=== PATIENT | female | born 1955 | race Caucasian/White ===

== ENCOUNTER 2019-10-25 10:16 | Emergency (ER) | payer BC, SELFPAY ==
--- NOTE | ~2019-10-25 | US_ITS ---
EXAMINATION: US venous doppler [facility] DATE: 10/25/2019 11:16 INDICATION: Left lower limb pain. TECHNIQUE: Grayscale ultrasound images without and with compression and Doppler ultrasound images of the left lower extremity veins were obtained. COMPARISON: None. FINDINGS: The visualized portions of left common femoral vein, profunda (deep) femoral vein, femoral vein, popl iteal vein, peroneal veins, posterior tibial veins, and greater saphenous vein outflow are patent. IMPRESSION: 1. No deep venous thrombosis. Reviewed, dictated and finalized at location A.
--- NOTE | ~2019-10-25 | XR_ITS ---
EXAMINATION: XR knee LT 3V EXAM DATE: 10/25/2019 10:58 INDICATION: No known recent injury provided at this time. Pain of the left knee. TECHNIQUE: Three projections of the left knee. There is no prior study for comparison. FINDINGS: No evidence osteochondral defect or joint body in the left knee joint. There is mild poly articular primary osteoarthritis. No joint effusion. There are no acute fractures or dislocations id entified. There is no subcutaneous gas. The soft tissue is unremarkable. There are no radiopaque foreign bodies. IMPRESSION: Mild polyarticular osteoarthritis. Reviewed, dictated and finalized at location B.
[2019-10-25 10:33] VITALS: BP 129/63; PULSE 60; RESP 19; TEMP 36.3; O2SAT 99
--- NOTE | 2019-10-25 10:34 | ED.EXTPRO ---
HPI - Extremity Problem General Chief complaint: Extremity Problem,Nontraumatic Stated complaint: Left Knee pain Time Seen by Provider: 10/25/19 10:30 Source: patient and RN notes reviewed Mode of arrival: other Limitations: no limitations History of Present Illness HPI Narrative: Pt is a 64 y/o female who presents to the ED with c/o posterior left knee pain that began Wednesday (10/21/19). Pt notes that today she stood up and had severe 9/10 pain. Pt notes that her pain is worsened when standing and bearing weight. Pt has been taking Motrin for her pain, but with minimial relief. Pt denies chest pain, fever, chills, SOB, nausea, and vomiting. MD Complaint: joint paint Onset (ago): day(s) (4) Pain Consistency: constant Location: left and knee (posterior) Severity scale (1-10): 9 (when standing) Radiation: none Exacerbating factors: weight bearing Associated symptoms: denies other symptoms Related Data Home Medications Medication Instructions Recorded Confirmed gabapentin 10/25/19 metoprolol tartrate 10/25/19 Allergies Allergy/AdvReac Type Severity Reaction Status Date / Time No Known Allergies Allergy Unknown Verified 10/25/19 10:37 Review of Systems Review of Systems: All systems reviewed & are unremarkable except as noted in HPI and below Constitutional: Constitutional: Denies chills and Denies fever(s) Cardiovascular: Cardiovascular: Denies chest pain Respiratory: Respiratory: Denies dyspnea Gastrointestinal: Gastrointestinal: Denies nausea and Denies vomiting Musculoskeletal: Musculoskeletal: Reports arthralgias (posterior left knee) [facility] Past Medical History Medical History (Updated 10/26/19 @ 06:41 by Lisa Mart MD) Arthritis Carpal tunnel syndrome Cataracts, bilateral Cystocele GERD (gastroesophageal reflux disease) Graves disease HTN (hypertension) Rosacea Seasonal allergies SERGO (stress urinary incontinence, female) Uterine prolapse Surgical History Surgical History (Updated 10/25/19 @ 10:37 by Magali Soto) H/O total hysterectomy History of carpal tunnel release left Hx of section x2 Family History Family History (Updated 10/25/19 @ 10:37 by Magali Soto) Mother Cerebrovascular accident Hypertension Other Family history of arthritis Social History Social History Smoking status: Never smoker Alcohol intake: never Gender identity (if verbalized by the patient): Female Exam Const: General: no acute distress and well developed Orientation/consciousness: oriented to person, oriented to place, oriented to time and patient oriented x3 HENMT: Head: normocephalic Ears: external ears normal General nose exam: Normal external nose present Eyes: General: appearance normal, both eyes and all related structures Conjunctivae: conjunctivae normal Neck: Neck: normal visual inspection and full ROM Resp: Effort & Inspection: normal respiratory effort Skin: General skin exam: normal color and turgor normal Neuro: General: oriented to person, oriented to place, oriented to time and patient oriented x3 Cognition (Neuro): normal cognition Extrem: General: normal to inspection, full ROM and no pedal edema Left lower extremity: knee Details: no tenderness and no swelling Psych: Appearance: grossly normal Mental Status: mental status grossly normal Affect: normal affect Course Vital Signs Vital signs: Vital Signs Temperature 36.3 C L 10/25/19 10:33 Pulse Rate 60 10/25/19 10:33 Respiratory Rate 19 10/25/19 10:33 Blood Pressure 129/63 10/25/19 10:33 Pulse Oximetry 99 10/25/19 10:33 Temperature 36.3 C L 10/25/19 10:33 Pulse Rate 60 10/25/19 10:33 Respiratory Rate 19 10/25/19 10:33 Blood Pressure 129/63 10/25/19 10:33 Pulse Oximetry 99 10/25/19 10:33 MDM - Extremity (Nontraumatic) Lab Data Result diagrams: 10/25/19 11:21 10/25/19 11:21 Labs: Lab Results
[2019-10-25] MEDS: GABAPENTIN 100 MG CAPSULE PO (11:17)
[2019-10-25 11:31] LABS: Basophils Absolute Auto 0.1 K/mm3 (0.0-0.1); Basophils Percent Auto 1.8 % (0.2-1.2); Eosinophils Absolute Auto 0.5 K/mm3 (0-0.3); Eosinophils Percent Auto 14.5 % (0-4.4); Hematocrit 36.6 % (37.0-47.0); Hemoglobin 11.7 g/dL (12.0-15.0); Lymphocytes Absolute Auto 0.92 K/mm3 (0.9-3.2); Lymphocytes Percent Auto 27.3 % (18.3-44.2); Mean Corpuscular Hemoglobin 31.2 pg (26-34); Mean Corpuscular Volume 97.6 fl (80-100); Mean Platelet Volume 9.7 fl (7.4-10.4); Monocytes Absolute Auto 0.4 K/mm3 (0.1-0.6); Monocytes Percent Auto 13.1 % (2.6-8.5); Neutrophils Absolute Auto 1.5 K/mm3 (1.3-6.7); Neutrophils Percent Auto 43.3 % (45.5-73.1); Platelet Count Result 244 k/mm3 (150-375); Red Blood Count 3.75 M/mm3 (4.2-5.4); Red Cell Distribution Width 12.7 % (11.5-14.5); White Blood Count 3.4 K/mm3 (4.5-10.0)
[2019-10-25 11:42] LABS: Blood Urea Nitrogen 22 mg/dL (7-17); Calcium 8.9 mg/dL (8.4-10.2); Carbon Dioxide 27 mmol/L (22-30); Chloride 107 mmol/L (98-107); Estimated Glomerular Filt Rate > 60; Glucose 80 mg/dL (65-105); Potassium 4.2 mmol/L (3.4-5.0); Sodium 140 mmol/L (137-145)
== END 2019-10-25 13:07 | disposition home or self-care (01) ==
PROVIDERS: Emergency Provider Emergency Medicine; PCP Family Medicine
DX: M25.562 Pain in left knee (principal); M19.90 Unspecified osteoarthritis, unspecified site; K21.9 Gastro-esophageal reflux disease without esophagitis; E05.00 Thyrotoxicosis with diffuse goiter without thyrotoxic crisis or storm; I10 Essential (primary) hypertension
CPT/HCPCS: 36415; 73562; 80048; 85025; 93971; 99284; A9270

== ENCOUNTER 2021-12-14 14:22 | Emergency (ER) | payer BC, SELFPAY ==
[2021-12-14] VITALS (10 sets, daily range): BP systolic 98–126; BP diastolic 54–73; PULSE 86–160; RESP 10–25; TEMP 36.4; O2SAT 95–100
--- NOTE | ~2021-12-14 | XR_ITS ---
EXAM: XR abdomen NG/feed tube insert HISTORY: NG insert COMPARISON: CT abdomen and pelvis 12/14/2021. FINDINGS: A new nasogastric tube terminates over the expected position of the stomach with the tip a nd side port is properly positioned. Positive bowel gas. A portion of the air and fluid filled stomac h extends above the level of the diaphragm. Severe degenerative changes in the lumbar spine. IMPRESSION: NG tube, in good position. Reviewed, dictated and finalized at location K. IMPRESSION: NG tube, in good position.
--- NOTE | ~2021-12-14 | CT_ITS ---
EXAMINATION: CT abdomen pelvis wo con DATE: 12/14/2021 15:38 INDICATION: Lower abdominal pain TECHNIQUE: Computed tomography (CT) of the abdomen and pelvis was performed without intravenous contr ast. Automated exposure control and iterative reconstruction technique were employed. The dose-length product was 287.54 mGy-cm. COMPARISON: None FINDINGS: Lower thorax: Portions of the stomach herniated through the esophageal hiatus. Liver: Normal. Biliary/Gallbladder: Gallbladder is distended. No stones. No bile duct dilation. Spleen: Normal. Pancreas: No mass or duct dilation. Adrenals:No mass. Kidneys: 2 mm nonobstructive left midpole calculus. No mass. No hydronephrosis. GI tract: Marked gastric distention. Abnormal position of the stomach, with the antrum herniated thro ugh the esophageal hiatus (mesentero- axial positioning). Appendix not visualized. Mesentery/Peritoneum: No ascites, mass, or free air. Retroperitoneum: No mass. Pelvis: Uterus not visualized. Pelvic organs obscured by metal artifact. Bones/Soft Tissues: Soft tissues and body wall unremarkable. Extensive degenerative changes in the sp ine. Left hip arthroplasty. Additional Findings: None. IMPRESSION: Gastric volvulus. Gallbladder hydrops. Results communicated to Dr. Calloway by Dr. Harrison telephonically at 4:04 PM on 12/14/2021. Reviewed, dictated and finalized at location K. IMPRESSION: Gastric volvulus. Gallbladder hydrops. Results communicated to Dr. Calloway by Dr. Harrison telephonically at 4:04 PM on 12/14.
--- NOTE | 2021-12-14 14:51 | ECG_ITS ---
Measurements Intervals [place] Rate: 146 P: [place]: 0 QRS: 14 QRSD: 102 T: 213 QT: 301 QTc: 470 Interpretive Statements ATRIAL FIBRILLATION WITH RAPID VENTRICULAR RESPONSE LEFT VENTRICULAR HYPERTROPHY WITH ST-T CHANGE ST-T WAVE ABNORMALITY IN INF/LAT LEADS- CONSIDER ISCHEMIA BASELINE ARTIFACT- I, II, III, AVR, AVL, AVF, V3-V6 ABNORMAL ECG Electronically Signed On 12-14-2021 16:40:06 CDT by Fabian Montejo D.O.
[2021-12-14 15:01] LABS: Basophils Percent Auto 0.1 % (0.2-1.2); Hematocrit 40.8 % (37.0-47.0); Hemoglobin 13.5 g/dL (12.0-15.0); Immature Granulocyte Absolute 0.02 K/mm3 (0.00-0.031); Immature Granulocyte Percent A 0.2 % (0-0.5); Lymphocytes Percent Auto 5.7 % (18.3-44.2); Mean Corpuscular HGB Conc 33.1 g/dl (32-36); Mean Corpuscular Hemoglobin 31.3 pg (26-34); Mean Corpuscular Volume 94.4 fl (80-100); Mean Platelet Volume 10.4 fl (7.4-10.4); Monocytes Absolute Auto 0.8 K/mm3 (0.1-0.6); Monocytes Percent Auto 7.3 % (2.6-8.5); Neutrophils Absolute Auto 9.1 K/mm3 (1.3-6.7); Neutrophils Percent Auto 86.7 % (45.5-73.1); Platelet Count Result 302 k/mm3 (150-375); Red Blood Count 4.32 M/mm3 (4.2-5.4); Red Cell Distribution Width 12.9 % (11.5-14.5); White Blood Count 10.5 K/mm3 (4.5-10.0)
--- NOTE | 2021-12-14 15:09 | ED.ABDPAIN ---
HPI - Abdominal Pain General Chief Complaint: Abdominal Pain Stated Complaint: abd pain x 3-4 days Time Seen by Provider: 12/14/21 15:02 Source: patient, family and EMS Mode of arrival: EMS Limitations: no limitations History of Present Illness HPI narrative: 66 years old white female presents with diffuse abdominal pain, nausea, vomiting over the last 3 days, unable to keep anything down, did not take her medication over the last few days. She denies fever, chills, chest pain, shortness of breath. History of Graves' disease, hypertension, hysterectomy. Patient lives with family. Related Data Home Medications Medication Instructions Recorded Confirmed gabapentin 300 mg capsule 600 mg PO QHS cap 11/19/21 11/19/21 Allergies Allergy/AdvReac Type Severity Reaction Status Date / Time No Known Allergies Allergy Unknown Verified 11/19/21 15:01 Review of Systems Review of Systems: All systems reviewed & are unremarkable except as noted in HPI and below PMFSH Past Medical History Medical History Arthritis Arthritis of knee Carpal tunnel syndrome Cataracts, bilateral Cystocele GERD (gastroesophageal reflux disease) Graves disease HTN (hypertension) Rosacea Seasonal allergies SERGO (stress urinary incontinence, female) Uterine prolapse Surgical History Surgical History H/O joint replacement H/O total hysterectomy History of carpal tunnel release left Hx of section x2 Family History Family History Mother Cerebrovascular accident Hypertension Other Family history of arthritis Social History Social History Social History: Smoking status: Never smoker Second hand tobacco smoke exposure: No Alcohol intake: never Substance use: never Substance use type: does not use Gender identity (if verbalized by the patient): Female Sexual Orientation (if Verbalized by the Patient): Straight or Heterosexual Exam Narrative: General appearance: Well-developed, well-nourished, ill looking Skin: Normal color Head: Normocephalic, nontraumatic Eyes: Clear conjunctiva ENT: Dry oral cavity Neck: Supple, nontender Chest and respiratory: Airway patent, no respiratory distress, no accessory muscle use Heart: Regular rate/rhythm Abdomen: Diffuse abdominal tenderness, slight epigastric distention Vascular: Normal peripheral pulses, normal capillary refill. Musculoskeletal: Normal range of motion, nontender back Neurologic: Alert and oriented ?3, MILLING MACHINE OPERATOR is normal as tested, no gross motor deficit Course Course Emergency Course: Patient presents with abdominal pain, CT scan showed gastric volvulus, GI consult, surgery consult ordered Consultations Consultation #1: Dr. Razo Date: 12/14/21 Time: 16:52 Consultation #2: Dr. Bull Transfer to [facility] Date: 12/14/21 Time: 16:53 Consultation #3: DR MCKINNEY, thoracic surgeon at [facility] NG tube have to be twisted 180 degree to decompress the stomach. And this can be done through EGD/briquette operator. No bed available for the next 3 to 4 days. Date: 12/14/21 Time: 17:37 Additional Consultation(s): DR JORDAN, thoracic surgeon at [facility], accepted patient to be transferred, but no bed available at this time Vital Signs Vital signs: Vital Signs Temperature 36.4 C 12/14/21 14:42 Pulse Rate 160 H 12/14/21 14:42 Respiratory Rate 22 H 12/14/21 14:42 Blood Pressure 119/59 L 12/14/21 14:42 Pulse Oximetry 97 05
[2021-12-14 15:12] LABS: INR 1.1; Prothrombin Time 13.8 Seconds (11.1-14.7)
[2021-12-14 15:13] LABS: Partial Thromboplastin Time 23.6 SECONDS (22.3-36.8)
[2021-12-14] MEDS: HYDROmorphone HCL INJ (*CRX) 1 MG/ML SYR 0.5 MG IV PUSH (15:14)
[2021-12-14] MEDS: ONDANSETRON INJ 4 MG/2 ML VIAL IV PUSH (15:15)
[2021-12-14 15:21] LABS: Alanine Aminotransferase 40 U/L (4-35); Albumin Level 4.7 g/dL (3.5-5.1); Alkaline Phosphatase 81 U/L (38-126); Anion Gap 18 mmol/L (8-16); Aspartate Amino Transferase 54 U/L (14-36); Bilirubin,Total 0.4 mg/dL (0.2-1.3); Blood Urea Nitrogen 79 mg/dL (7-17); Calcium 8.9 mg/dL (8.4-10.2); Carbon Dioxide 24 mmol/L (22-30); Chloride 103 mmol/L (98-107); Estimated CRCL calculation 12 ml/min; Estimated Glomerular Filt Rate 14; Glucose 171 mg/dL (65-110); Lipase 1077 U/L (23-300); Sodium 145 mmol/L (137-145)
[2021-12-14 15:33] LABS: Add Urine Microscopic? YES; Appearance Urine Cloudy (Clear); Bilirubin Urine Negative (Negative); Blood Urine 1+ (Negative); Color Urine Amber (Yellow); Glucose Urine UA 1+ mg/dL (Negative); Ketones Urine Negative (Negative); Leukocyte Esterase Ur Negative LEU/UL (Negative); Mucus Urine Rare /lpf; Nitrate Urine Negative (Negative); Protein Urine 2+ mg/dL (Negative); Specific Grav Ur 1.019 (1.001-1.035); Squamous Epithelial Cell Urine Occasional /hpf (Few); Urobilinogen Urine Negative mg/dL (<2.0); White Blood Cell Casts Urine Present /lpf
[2021-12-14 15:34] LABS: Troponin I 0.124 ng/mL (0.000-0.034)
[2021-12-14 16:09] LABS: Thyroid Stimulating Hormone 0.471 uIU/mL (0.465-4.680)
[2021-12-14] MEDS: SODIUM CHLORIDE 0.9% IV 1,000 ML 999 ML IV CONT (16:23)
[2021-12-14 18:59] LABS: Troponin I 0.095 ng/mL (0.000-0.034)
[2021-12-14 19:06] LABS: SARS-CoV-2 RNA PCR Negative
--- NOTE | 2021-12-14 19:15 | PC.NURSE ---
called [facility] transfer center and updated them that COVID test is negative.
--- NOTE | 2021-12-14 19:23 | PC.NURSE ---
Report received from MADISYN Severino. This nurse assumed care of patient at this time. Patient has family at bedside, no acute distress noted, VVS, call light within reach.
[2021-12-14] MEDS: METOPROLOL TARTRATE INJ 5 MG/5 ML VIAL IV PUSH ×2 (20:09→21:29)
[2021-12-14] MEDS: SODIUM CHLORIDE 0.9% IV 1,000 ML 150 ML IV CONT (20:09)
--- NOTE | 2021-12-14 20:21 | PC.NURSE ---
Patients elana Hatfield leaves his number for contact and info as well as updates, .
[2021-12-15] VITALS (10 sets, daily range): BP systolic 108–132; BP diastolic 60–73; PULSE 86–95; RESP 16–26; TEMP 36.7–37.2; O2SAT 94–100
--- NOTE | 2021-12-15 01:38 | PC.NURSE ---
Patient c/o headache and nasal drainage. ERP notified, VORB to give 1gm of tylenol and 25mg of benadryl IV.
[2021-12-15] MEDS: diphenhydrAMINE HCl INJ 50 MG/ML VIAL 25 MG IV PUSH (01:42)
--- NOTE | 2021-12-15 03:16 | PC.NURSE ---
Contacted [facility] transfer center to get update on patient bed status. Spoke with Isabella, she stated she is still waiting for a cardiothoracic bed. She stated she will contact the placement team and call back if an update comes available.
--- NOTE | 2021-12-15 03:35 | PC.NURSE ---
Patient received bed, Room number 7466-1.
--- NOTE | 2021-12-15 03:49 | PC.NURSE ---
[id number] Called report to MADISYN Ricardo at [place]. She stated to call [phone] when patient is leaving our facility to theirs.
== END 2021-12-15 07:48 | disposition short-term general hospital (02) ==
PROVIDERS: Physician Assistant; Emergency Provider Emergency Medicine; PCP Family Medicine
DX: K31.89 Other diseases of stomach and duodenum (principal); N17.9 Acute kidney failure, unspecified; R79.89 Other specified abnormal findings of blood chemistry; R74.8 Abnormal levels of other serum enzymes; M19.90 Unspecified osteoarthritis, unspecified site; K21.9 Gastro-esophageal reflux disease without esophagitis; I10 Essential (primary) hypertension; Z20.822 Contact with and (suspected) exposure to COVID-19; Z79.899 Other long term (current) drug therapy; Z90.710 Acquired absence of both cervix and uterus
CPT/HCPCS: 36415; 51701; 74176; 80053; 81001; 83690; 84443; 84484; 85025; 85610; 85730; 87086; 93005; 96361; 96365; 96375; 96376; 99285; C9803; J0131; J1170; J1200; J2405; J7030; U0003; U0005

== ENCOUNTER 2023-06-06 21:25 | Emergency (ER) | payer BC, SELFPAY ==
--- NOTE | ~2023-06-06 | XR_ITS ---
EXAM: XR hand RT min 3V, XR wrist RT min 3V DATE: 06/06/2023 21:56 HISTORY: right 1st finger and medial wrist pain . COMPARISON: None available. FINDINGS: Decreased mineralization. No fracture or dislocation. No lytic or blastic lesion. Mild sca ttered degenerative change. TFCC chondrocalcinosis. No erosion or periosteal change. Soft tissue swel ling over the first digit. IMPRESSION: No acute osseous finding in the right hand or wrist. Reviewed, dictated and finalized at location K. IMPRESSION: No acute osseous finding in the right hand or wrist.
[2023-06-06 21:27] VITALS: BP 160/76; PULSE 70; RESP 14; TEMP 36.3; O2SAT 97
--- NOTE | 2023-06-06 22:24 | ED.UPPEXIN ---
HPI - Extremity Injury (Upper) General Chief Complaint: Extremity Injury, Upper Stated Complaint: thumb/wrist pain left Time Seen by Provider: 06/06/23 21:46 Source: patient Mode of arrival: ambulatory Limitations: no limitations History of Present Illness HPI narrative: This is a 67-year-old female that presents to the emergency department for right wrist and hand pain. Ongoing over the last week. Reports she has been taking anti-inflammatories with little relief. No recent injury or trauma. Reports some swelling to the area. Denies fever, erythema, or decreased range of motion. Related Data Home Medications Medication Instructions Recorded Confirmed gabapentin 300 mg capsule 600 mg PO QHS 11/19/21 03/17/23 Allergies Allergy/AdvReac Type Severity Reaction Status Date / Time No Known Allergies Allergy Unknown Verified 06/06/23 21:49 Review of Systems Review of Systems: CONSTITUTIONAL: Denies fever MUSCULOSKELETAL: Reports joint pain, and myalgia. NEUROLOGIC: Denies numbness All systems reviewed & are unremarkable except as noted in HPI and below PMFSH Past Medical History Medical History Arthritis Arthritis of knee Carpal tunnel syndrome Cataracts, bilateral Cystocele GERD (gastroesophageal reflux disease) Graves disease HTN (hypertension) Rosacea Seasonal allergies SERGO (stress urinary incontinence, female) Uterine prolapse Surgical History Surgical History H/O joint replacement H/O total hysterectomy History of carpal tunnel release left Hx of section x2 Family History Family History Mother Cerebrovascular accident Hypertension Other Family history of arthritis Social History Social History Social History: Smoking status: Never smoker Second hand tobacco smoke exposure: No Alcohol intake: never Substance use: never Substance use type: does not use Living arrangements: with family Occupation/Education: retired Gender identity (if verbalized by the patient): Female Sexual Orientation (if Verbalized by the Patient): Straight or Heterosexual Exam Narrative: GENERAL: Well-appearing, well-nourished, and in no acute distress. HEAD: Normocephalic, atraumatic. EYES: EOMI. EXTREMITIES: Normal range of motion. Mild edema to the right first finger at the base. No erythema. Normal radial pulse. Normal sensation SKIN: Warm, dry, no rash. NEURO: No focal deficits. Alert and oriented x3. PSYCH: Normal mood and affect Course Course Emergency Course: Patient and family updated on work-up and agree with plan of care Vital Signs Vital signs: Vital Signs Temperature 97.4 F L 06/06/23 21: Pulse Rate 70 06/06/23 21:27 Respiratory Rate 14 06/06/23 21:27 Blood Pressure 160/76 H 06/06/23 21:27 Pulse Oximetry 97 06/06/23 21:27 Temperature 97.4 F L 06/06/23 21:27 Pulse Rate 70 06/06/23 21:27 Respiratory Rate 14 06/06/23 21:27 Blood Pressure 160/76 H 06/06/23 21:27 Pulse Oximetry 97 06/06/23 21:27 MDM - Extremity Injury (Upper) MDM Narrative Medical decision making narrative: Patient presents to the emergency department for right wrist and first finger pain and swelling. Ongoing over the last week. She is afebrile and nontoxic-appearing. Mild swelling is noted in the area. She has normal range of motion. There is no erythema. CBC is without leukocytosis. Metabolic panel with normal kidney function. Right hand and wrist x-rays show no acute osseous abnormalities. Does show osteoarthritis and some evidence of CPPD. Patient has been taking anti-inflammatories with little relief. Patient is probably out of window for colchicine to be helpful. We will start her on a steroid tape
[2023-06-06 22:38] LABS: Basophils Absolute Auto 0.1 K/mm3 (0.0-0.1); Basophils Percent Auto 0.9 % (0.2-1.2); Eosinophils Absolute Auto 0.3 K/mm3 (0-0.3); Eosinophils Percent Auto 4.6 % (0-4.4); Hematocrit 35.8 % (37.0-47.0); Hemoglobin 11.6 g/dL (12.0-15.0); Immature Granulocyte Absolute 0.01 K/mm3 (0.00-0.031); Immature Granulocyte Percent A 0.2 % (0-0.5); Lymphocytes Absolute Auto 1.02 K/mm3 (0.9-3.2); Lymphocytes Percent Auto 18.6 % (18.3-44.2); Mean Corpuscular HGB Conc 32.4 g/dl (32-36); Mean Corpuscular Hemoglobin 31.4 pg (26-34); Mean Platelet Volume 10.1 fl (7.4-10.4); Monocytes Absolute Auto 0.5 K/mm3 (0.1-0.6); Monocytes Percent Auto 8.8 % (2.6-8.5); Neutrophils Absolute Auto 3.7 K/mm3 (1.3-6.7); Neutrophils Percent Auto 66.9 % (45.5-73.1); Platelet Count Result 216 k/mm3 (150-375); Red Blood Count 3.69 M/mm3 (4.2-5.4); Red Cell Distribution Width 12.8 % (11.5-14.5); White Blood Count 5.5 K/mm3 (4.5-10.0)
[2023-06-06 22:50] LABS: Potassium 4.1 mmol/L (3.4-5.0)
[2023-06-06 23:01] LABS: Anion Gap 6 mmol/L (8-16); Blood Urea Nitrogen 41 mg/dL (7-17); Calcium 9.4 mg/dL (8.4-10.2); Carbon Dioxide 23 mmol/L (22-30); Chloride 110 mmol/L (98-107); Estimated Glomerular Filt Rate > 60; Glucose 104 mg/dL (65-110); Sodium 139 mmol/L (137-145)
== END 2023-06-06 23:20 | disposition home or self-care (01) ==
PROVIDERS: Emergency Provider Physician Assistant; PCP Family Medicine
DX: M11.231 Other chondrocalcinosis, right wrist (principal); M11.241 Other chondrocalcinosis, right hand; K21.9 Gastro-esophageal reflux disease without esophagitis; I10 Essential (primary) hypertension; E05.00 Thyrotoxicosis with diffuse goiter without thyrotoxic crisis or storm
CPT/HCPCS: 36415; 73110; 73130; 80048; 85025; 99283

== ENCOUNTER 2023-11-17 22:44 | Emergency (ER) | payer BC, SELFPAY ==
--- NOTE | ~2023-11-17 | CT_ITS ---
CT of the Abdomen and Pelvis: Indication: Abdominal pain Technique: 2.5 mm axial scans were obtained through the abdomen and pelvis following intravenous adm inistration of 100 cc of Omnipaque 350. Dose reduction technique was used on this scan by utilizing a utomated exposure control and iterative reconstruction technique. The dose-length product (DLP) was 1 74.93 mGy-cm. Findings: Scans through the lung bases are unremarkable. The liver, spleen, pancreas, gallbladder, adrenals and right kidney are within normal limits. 3 mm no nobstructing left renal stone present. There are atherosclerotic calcifications of the aorta. No lym phadenopathy. No bowel obstruction or bowel wall thickening. There is no evidence to suggest acute appendicitis. Images through the pelvis were performed. Urinary bladder unremarkable. No pelvic mass seen. No ascit es. There is apparent enlargement of the right pectineus and adductor luz muscle bellies. There is an acute nondisplaced fracture of the right superior and pubic rami adjacent to the pubic symphysis. There is left sacral insufficiency fracture. Impression: Acute, nondisplaced fracture of the right superior and inferior pubic rami adjacent to the pubic symp hysis. Lumbosacral insufficiency fracture. Asymmetric enlargement right pectineus/adductor luz muscle bellies, likely representing an element of hematoma related to trauma. 3 mm nonobstructing left renal stone. Reviewed, dictated and finalized at [facility]. Impression: Acute, nondisplaced fracture of the right superior and inferior pubic rami nolan cent to the pubic symphysis. Lumbosacral insufficiency fracture. Asymmetric enlargement right pectineus/adductor luz muscle bellies, likely r epresenting an element of hematoma related to trauma. 3 mm nonobstructing left renal stone.
--- NOTE | ~2023-11-17 | XR_ITS ---
AP view of the pelvis and AP and lateral views of the right hip Clinical history: Pain Findings: No acute fracture or dislocation is seen. Osseous alignment is anatomic. Right hip joint sp montserrat is preserved. Left hip arthroplasty in place. Soft tissues are unremarkable. Impression: No acute abnormality is seen. Left hip arthroplasty. Reviewed, dictated and finalized at location . Impression: No acute abnormality is seen. Left hip arthroplasty.
[2023-11-17 22:47] VITALS: BP 160/79; PULSE 82; RESP 17; TEMP 36.6; O2SAT 98
[2023-11-18 00:41] LABS: Basophils Absolute Auto 0.1 K/mm3 (0.0-0.1); Basophils Percent Auto 0.8 % (0.2-1.2); Eosinophils Absolute Auto 0.3 K/mm3 (0-0.3); Eosinophils Percent Auto 4.4 % (0-4.4); Hematocrit 34.6 % (37.0-47.0); Hemoglobin 11.2 g/dL (12.0-15.0); Immature Granulocyte Absolute 0.02 K/mm3 (0.00-0.031); Immature Granulocyte Percent A 0.3 % (0-0.5); Lymphocytes Absolute Auto 1.05 K/mm3 (0.9-3.2); Lymphocytes Percent Auto 16.1 % (18.3-44.2); Mean Corpuscular HGB Conc 32.4 g/dl (32-36); Mean Corpuscular Hemoglobin 30.7 pg (26-34); Mean Corpuscular Volume 94.8 fl (80-100); Mean Platelet Volume 9.7 fl (7.4-10.4); Monocytes Absolute Auto 0.5 K/mm3 (0.1-0.6); Monocytes Percent Auto 8.1 % (2.6-8.5); Neutrophils Absolute Auto 4.6 K/mm3 (1.3-6.7); Neutrophils Percent Auto 70.3 % (45.5-73.1); Platelet Count Result 292 k/mm3 (150-375); Red Blood Count 3.65 M/mm3 (4.2-5.4); Red Cell Distribution Width 12.6 % (11.5-14.5); White Blood Count 6.5 K/mm3 (4.5-10.0)
[2023-11-18] MEDS: SODIUM CHLORIDE 0.9% IV 1,000 ML 999 ML IV CONT (00:42)
[2023-11-18 00:54] LABS: Alanine Aminotransferase 30 U/L (6-35); Alkaline Phosphatase 109 U/L (38-126); Anion Gap 6 mmol/L (4-12); Aspartate Amino Transferase 45 U/L (14-36); Bilirubin,Total 0.3 mg/dL (0.2-1.3); Blood Urea Nitrogen 46 mg/dL (7-17); Calcium 9.9 mg/dL (8.4-10.2); Carbon Dioxide 27 mmol/L (22-30); Chloride 106 mmol/L (98-107); Estimated Glomerular Filt Rate > 60; Glucose 106 mg/dL (65-110); Lipase 160 U/L (23-300); Magnesium 1.9 mg/dL (1.6-2.3); Potassium 3.7 mmol/L (3.4-5.0); Sodium 139 mmol/L (137-145)
[2023-11-18 00:55] LABS: Lactic Acid Reflex 0.7 mmol/L (0.7-2.0)
[2023-11-18] MEDS: KETOROLAC 15 MG/ML VIAL (*BKC) IV PUSH (01:06)
[2023-11-18] MEDS: methocarbamoL 500 MG TABLET PO (01:07)
--- NOTE | 2023-11-18 01:19 | ED.BACK ---
HPI - Back Pain/Injury General Chief Complaint: Back Pain/Injury Stated Complaint: back pain Time Seen by Provider: 11/18/23 00:22 History of Present Illness HPI Narrative: Patient is a 67-year-old female who presents to the emergency department this evening complaining of right inguinal pain. Patient states that she has noticed this approximately 1 week ago and has been persisting since then. Patient states that the pain is preventing her from being able to walk normally as she noticed that it hurts more when she is walking. Patient denies any recent falls or trauma and denies any similar symptoms in the past. She denies any weakness or numbness to her right lower extremity. Patient is denying any additional symptoms including fevers, chills, chest pain, shortness of breath, headaches. There are no other modifying, alleviating, or precipitating factors at this time. Related Data Home Medications Medication Instructions Recorded Confirmed gabapentin 300 mg capsule 600 mg PO QHS 11/19/21 09/29/23 Allergies Allergy/AdvReac Type Severity Reaction Status Date / Time No Known Allergies Allergy Unknown Verified 11/18/23 00:03 Review of Systems Review of Systems: All systems are reviewed and are negative unless stated otherwise in the HPI. [facility] Past Medical History Medical History Arthritis Arthritis of knee Carpal tunnel syndrome Cataracts, bilateral Cystocele GERD (gastroesophageal reflux disease) Graves disease HTN (hypertension) Rosacea Seasonal allergies SERGO (stress urinary incontinence, female) Uterine prolapse Surgical History Surgical History H/O joint replacement H/O total hysterectomy History of carpal tunnel release left Hx of section x2 Family History Family History Mother Cerebrovascular accident Hypertension Other Family history of arthritis Social History Social History Social History: Smoking status: Never smoker Second hand tobacco smoke exposure: No Alcohol intake: never Substance use: never Substance use type: does not use Do You Feel Safe in your Home?: Yes Lack of Transportation: No Lack of Food: Never True Current Housing: I Have Housing Concerned About Future Housing: No Difficulty Paying Gas/Electric Bills: No Difficulty Paying for Meds: No Currently Unemployed: YES Education: Don't Know Difficulty w/ Childcare or Family Care: No Living arrangements: with family Occupation/Education: retired Gender identity (if verbalized by the patient): Female Sexual Orientation (if Verbalized by the Patient): Straight or Heterosexual Exam Narrative: General: Alert, awake, afebrile, in no acute distress. HEENT: PERRL, no rhinorrhea, no post nasal drip, oropharynx clear. Neck: Trachea midline, no JVD, no lymphadenopathy. Cardiovascular: Regular rate and rhythm, no murmurs, rubs or gallops, no peripheral edema. Respiratory: Clear to auscultation bilaterally, no tachypnea, no wheezing, no rhonchi, no rubs, no respiratory distress. Abdomen: Soft, no tenderness to palpation over the bilateral lower quadrants, no inguinal hernia palpated, nondistended, no rebound, no guarding, no peritoneal signs. Musculoskeletal: No joint swelling or deformity, normal muscle tone, right inguinal pain worsens with straightening of the patient's right lower extremity and alleviated with flexion of the right lower extremity at the hip joint, patient has 5/5 motor strength in the bilateral lower extremity. Skin: No rashes or petechia, no signs of infection. Psychiatric: Alert and oriented, normal behavior and judgment for situation. Neurological: Alert and oriented to person, place, and time. Follows all commands. No focal deficit
[2023-11-18 02:02] LABS: Bacteria Urine 1+ /hpf; Squamous Epithelial Cell Urine Moderate /hpf (Few); WBC Urine 51-100 /hpf (0-3)
[2023-11-18 02:07] LABS: Appearance Urine Clear (Clear); Color Urine Yellow (Yellow); Glucose Urine UA Negative (Negative); Ketones Urine Negative (Negative); Protein Urine Negative (Negative); pH Urine 5.5 (5.0-9.0)
[2023-11-18 02:08] LABS: Bilirubin Urine Negative (Negative); Blood Urine 2+ (Negative); Leukocyte Esterase Ur 2+ LEU/UL (Negative); Nitrate Urine Negative (Negative); Urobilinogen Urine 0.2 mg/dL (<2.0)
[2023-11-18 02:09] LABS: Add Urine Microscopic? YES
[2023-11-18] MEDS: ONDANSETRON INJ 4 MG/2 ML VIAL IV PUSH (02:46)
[2023-11-18 02:51] VITALS: BP 129/65; PULSE 86; RESP 18; O2SAT 96
--- NOTE | 2023-11-18 03:45 | PC.NURSE ---
Assumed care of pt from MADISYN Senior at this time. Pt resting comfortably in bed. Son at bedside. Call light within reach.
[2023-11-18 05:28] VITALS: BP 132/70; PULSE 87; RESP 16; O2SAT 98
== END 2023-11-18 05:29 | disposition home or self-care (01) ==
PROVIDERS: Emergency Provider Emergency Medicine; PCP Family Medicine
DX: S32.591A Other specified fracture of right pubis, initial encounter for closed fracture (principal); M84.48XA Pathological fracture, other site, initial encounter for fracture; I10 Essential (primary) hypertension; E05.00 Thyrotoxicosis with diffuse goiter without thyrotoxic crisis or storm; N39.3 Stress incontinence (female) (male); K21.9 Gastro-esophageal reflux disease without esophagitis; M17.10 Unilateral primary osteoarthritis, unspecified knee; H26.9 Unspecified cataract; Z96.642 Presence of left artificial hip joint; Z90.710 Acquired absence of both cervix and uterus; N20.0 Calculus of kidney; X58.XXXA Exposure to other specified factors, initial encounter
CPT/HCPCS: 36415; 73502; 74177; 80053; 81001; 83605; 83690; 83735; 85025; 87086; 96361; 96374; 96375; 99284; A9270; J1885; J2405; J7030; Q9967

== ENCOUNTER 2025-05-05 11:31 | Emergency (ER) | payer BC, SELFPAY ==
--- NOTE | ~2025-05-05 | XR_ITS ---
Abdominal radiograph(s) INDICATION: Left-sided pain, evaluate constipation COMPARISON: CT abdomen and pelvis 11/18/2023 TECHNIQUE: Single supine AP abdomen FINDINGS: Lung bases clear. Scattered colonic stool. Volume not abnormally increased. Small bowel loops not well seen. No evidence of organomegaly. No abnormal abdominal calcifications. No acute bony abnormality. Severe S-shaped lumbar scoliosis. IMPRESSION: 1. No acute findings. Reviewed, dictated and finalized at location R. IMPRESSION: 1. No acute findings.
--- NOTE | 2025-05-05 11:33 | ED.ABDPAIN ---
HPI - Abdominal Pain General Chief Complaint: Fever Stated Complaint: Fever / LT Side Pain Time Seen by Provider: 05/05/25 11:33 Source: patient Mode of arrival: ambulatory Limitations: no limitations History of Present Illness HPI narrative: Chery is a 69-year-old female patient presenting to the clinic today with complaints of fever highest of 101? F, nausea, vomiting, and left lateral side pain since last night. Rates the pain a 6/10- aching pain that comes and goes.. She reports history of kidney stones back in the 80s/90s. Denies any diarrhea. States she had a influenza like illness at the end of March. History of cystocele, uterine prolapse, and stress incontinence. Related Data Home Medications ?Medication ?Instructions ?Recorded ?Confirmed ?Last Taken ?Type gabapentin 300 mg capsule 600 mg PO QHS 11/19/21 04/11/25 Unknown History teriparatide 20 mcg/dose (750 20 mcg subcut DAILY 04/11/24 04/11/25 Unknown History mcg/3 mL) subcutaneous pen injector Allergies Allergy/AdvReac Type Severity Reaction Status Date / Time No Known Allergies Allergy Unknown Verified 05/05/25 11:35 Review of Systems Review of Systems: Pertinent positives per HPI. Patient denies any rash, headache, visual changes, dizziness, cough, runny nose, sore throat, shortness of breath, chest pain, palpitations, nausea, vomiting, diarrhea, constipation. [facility] Past Medical History Medical History Arthritis of knee Graves disease Carpal tunnel syndrome Arthritis SERGO (stress urinary incontinence, female) Cystocele Uterine prolapse GERD (gastroesophageal reflux disease) HTN (hypertension) Seasonal allergies Rosacea Cataracts, bilateral Surgical History Surgical History H/O joint replacement History of carpal tunnel release left Hx of section x2 H/O total hysterectomy Family History Family History Mother Cerebrovascular accident Hypertension Other Family history of arthritis Social History Social History Social History: Smoking status: Never smoker Second hand tobacco smoke exposure: No Alcohol intake: never Substance use: never Substance use type: does not use Do You Feel Safe in your Home?: Yes Lack of Transportation: No Lack of Food: Never True Current Housing: I Have Housing Concerned About Future Housing: No Difficulty Paying Gas/Electric Bills: No Difficulty Paying for Meds: No Currently Unemployed: YES Education: Don't Know Difficulty w/ Childcare or Family Care: No Living arrangements: with family Occupation/Education: retired Gender identity (if verbalized by the patient): Female Sexual Orientation (if Verbalized by the Patient): Straight or Heterosexual Comments At the time of my signature, I reviewed and agree with the nursing past medical, surgical, social, and family history. There is no relevant family history pertinent to the patient complaint. Exam Narrative: General: Well-developed, well nourished, in no apparent distress. Head: Normocephalic, atraumatic. Cardio: Regular rate and rhythm, s1 and s2 normal, no murmur appreciated. Resp: Clear to auscultation bilaterally, no rhonchi, rales, wheezing or rubs. Abdomen: Soft, pliable, bowel sounds present in all quadrants, mild left upper abdomen/side tender to palpation, no organomegly, no CVAT tenderness. Course Course Emergency Course: Portions of this record may have been created with voice recognition software. Level of Care: Express Care Visit Vital Signs Vital signs: Vital Signs Temperature 37.6 C 05/05/25 11:38 Pulse Rate 89 05/05/25 11:38 Respiratory Rate 05/05/25 11:38 Blood Pressure 124/62 05/05/25 11:38 Pulse Oximetry 96 05/05/25 11:38 Oxygen Delivery Room Air 05/05/25 11:38 Temperature 37.6 C 05/05/25 11:38 Pulse Rate 89 05/05/25 11:38 Respiratory Rate 05/05/25 11:38 Blood Pressure 124/62 05/05/25 11:38 Pulse Oximetry 96 05/05/25 11:38 Oxygen Delivery Room Air 05/05/25 11:38 Vital signs reviewed MDM - Abdominal Pain MDM Narrative Medical decision making narrative: At the time of visit patient is resting comfortably on the exam table. Patient appears to be nontoxic. Complaints of fever highest of 101? F, nausea, vomiting, and left lateral side pain since last night. Rates the pain a 6/10- aching pain that comes and goes. She reports history of kidney stones back in the 80s/90s. Denies any diarrhea. States she had a influenza like illness at the end of March. History of cystocele, uterine prolapse, and stress incontinence. On exam patient has tenderness to palpation over the left upper/lateral abdomen. Bowel sounds present all 4 quadrants, no CVAT tenderness, Urine dip and KUB x-ray were ordered. Labs: UA shows 3+leukocytes, nitrate positive, 1+ protein, and 3+ blood. We will send urine for culture Diagnosis: KUB x-ray was performed shows no acute abnormality Plan: I suspect patient has UTI/probable pyelonephritis. Prescription 7 day course for Cipro and ondansetron was sent to the pharmacy. Recommend going to the emergency room if her symptoms worsen and she voiced understanding. Supportive measures were discussed with the patient and they voiced understanding discharge instructions and agrees to treatment plan. Return precautions reviewed Differential Diagnosis Differential diagnosis: Likely abdominal pain, calculus of kidney, constipation, diverticulitis, gastroenteritis, pancreatitis, small bowel obstruction and other (Pyelonephritis, UTI) Lab Data Labs: Lab Results 05/05/25 Range/Units 12:16 POC Urine Color Yellow POC Urine Clarity Cloudy POC Urine pH 8.0 POC Ur Specif Ong 1.005 POC Urine Protein 1+ (Negative) POC Ur Glucose (UA) Negative (Negative) POC Urine Ketones Negative (Negative) POC Urine Blood 3+ (Negative) POC Urine Nitrite Positive (Negative) POC Urine Bilirubin 1+ (Negative) POC Urine Urobilinogen 0.2 POC U Leukocyte Esteras 3+ (Negative) Imaging Data Radiologist's impression: ITS Impressions Abdomen X-Ray 05/05/25 12:42 IMPRESSION: 1. No acute findings. Discharge Plan Discharge Clinical Impression: UTI (urinary tract infection) Qualifiers: Urinary tract infection type: acute cystitis Hematuria presence: without hematuria Qualified Code(s): N30.00 - Acute cystitis without hematuria Patient Disposition: Home Condition: Stable Instructions: Antibiotic Form, Urinary Tract Infection in Older Adults (ED) Additional Instructions: UA shows 3+leukocytes, nitrate positive, 1+ protein, and 3+ blood. We will send urine for culture KUB x-ray shows no acute abnormality. Take ciprofloxacin as prescribed Increase fluids and stay well hydrated Wipe front to back. May use wet wipes. Avoid tub baths If sexually active- pee before and after intercourse. Wear cotton panties Avoid tight clothing up against the genitals Follow up with your PCP in 1 week if symptoms persist. Patient Language: Syriac Prescriptions: New ciprofloxacin HCl [Cipro] 500 mg tablet 500 mg PO Q12H 7 Days Qty: 14 0RF ondansetron 8 mg tablet,disintegrating 8 mg PO Q8H PRN (Reason: nausea and vomiting) 3 Days Qty: 10 0RF No Action gabapentin 300 mg capsule 600 mg PO QHS losartan-hydrochlorothiazide 50-12.5 mg tablet See Rx Instructions .ROUTE .COMPLEX Qty: 90 1RF Dose Instruction: TAKE 1 TABLET BY MOUTH DAILY Rx Instructions: TAKE 1 TABLET BY MOUTH DAILY metoprolol tartrate 37.5 mg tablet 37.5 mg PO BID Qty: 180 1RF meloxicam 7.5 mg tablet 7.5 mg PO DAILY Qty: 90 1RF teriparatide 20 mcg/dose (750 mcg/3 mL) pen injector 20 mcg subcut DAILY Patient Comments: as per bone specialist Follow-up/Referrals: Roque Lynch MD [Primary Care Provider, Family Practice] Time of Disposition: 12:46 Quality NIHSS Nursing Documentation ED NIHSS nursing documentation: reviewed/agree
--- OUTSIDE RECORDS SUMMARY | 2025-05-05 11:35 | XMS_ITS | Clinical Summary ---
Author Organization [facility] Address [address] [place] [address] Care Team Providers Care User Experience Team Lead Name Role Phone Dunia Weinberg MD Primary Care Provider Allergies No known active allergies Medications ibuprofen (MOTRIN ORAL) Active metoprolol (LOPRESSOR) 100 mg tablet 1 tablet (100 mg total) Active losartan-hydroCH LOROthiazide (HYZAAR) 50-12.5 mg per tablet Take 1 tablet by mouth daily 05/31/20 21 Active docusate sodium (COLACE ORAL) Take by mouth Ac tive acidophilus-pect in, citrus 100 million cell-10 mg capsule Take by mouth Activ e iron 18 mg tablet Take by mouth Active polyethylene glycol (MIRALAX) 17 gram packetIndication s:constipation Take 1 packet (17 g total) by mouth daily 12/25/19 22 Active metoclopramide (REGLAN) 5 mg tablet Take 1 tablet (5 mg total) by mouth 3 (three) times a day before meals for 7 days 21 tablet 12/25/19 22 Active ondansetron (ZOFRAN) 4 mg tablet Take 1 tablet (4 mg total) by mouth every 8 (eight) hours as needed for nausea or vomiting 20 tablet 12/25/19 22 Active fluticasone propionate (FLONASE) 50 mcg/actuation nasal spray SHAKE LIQUID AND USE 1 SPRAY IN EACH NOSTRIL EVERY 12 HOURS 02/15/20 22 Active famotidine (PEPCID) 10 mg tablet Take 1 tablet (10 mg total) by mouth 2 (two) times a day Active calcium carbonate-vitami n D3 1,500 mg (600mg elemental) -800 unit per tablet Take 1 tablet by mouth daily Ca 600 mg & Vit D 1000 international units DAILY Active multivitamin capsule Take 1 capsule by mouth daily Active abaloparatide 80 mcg (3,120 mcg/1.56 mL) pen injectorIndicati ons:Age related osteoporosis, unspecified pathological fracture presence Inject 0.04 mL (80 mcg total) under the skin daily 1.56 mL 3 02/16/20 23 Active pen needle, diabetic (BD Ultra-Fine Mini Pen Needle) 31 gauge x 10/29 needleIndication s:Age related osteoporosis, unspecified pathological fracture presence Use one needle once a day 100 each 3 02/16/20 23 Active methylPREDNISolo ne (MEDROL DOSEPACK) 4 mg Dosepack Take 1 tablet (4 mg total) by mouth continuously Use as directed by package instructions 21 tablet 10/12/19 24 Active HYDROcodone-acet aminophen (NORCO) 5-325 mg per tablet Take 1 tablet by mouth every 8 (eight) hours as needed for pain 20 tablet 11/25/19 24 Active meloxicam (MOBIC) 7.5 mg tablet TAKE 1 TABLET(7.5 MG) BY MOUTH DAILY NEEDED FOR PAIN 30 tablet 08/14/20 24 Active gabapentin (NEURONTIN) 300 mg capsule Take 1 capsule (300 mg total) by mouth every morning AND 1 capsule (300 mg total) daily after lunch AND 2 capsules (600 mg total) nightly. 120 capsule 6 03/30/20 25 Active Active Problems Problem Noted Date Diagnosed Date Graves disease 12/20/2021 Hypophosphatemia 12/18/2021 Assessment & Plan (12/18/2021 7:53 AM CDT): - monitor - replete as needed Hyperthyroidism 12/18/2021 Assessment & Plan (12/23/2021 10:21 AM CDT): - restart methimazole Gastric outlet obstruction 12/16/2021 Assessment & Plan (12/23/2021 10:20 AM CDT): Very large, J shaped stomach seen intra-op - G tube to gravity-clamped - upper GI with small bowel follow through done and showed emptying of contrast - stop TPN after this bab - start clear liquids and advance to fulls later today - monitor labs Hypokalemia 12/16/2021 Assessment & Plan (12/18/2021 7:51 AM CDT): - repleted as needed - daily BMPs Hypernatremia 12/16/2021 Assessment & Plan (12/23/2021 10:20 AM CDT): - IVF/TPN - daily BMPs Incarcerated hiatal hernia 12/14/2021 Overview (12/15/2021): Added automatically from request for surgery [id number] Assessment & Plan (12/23/2021 10:21 AM CDT): S/p lap HH repair with pyloric dilation and peg tube placement - G tube clamped - clear liquids started - unclamp GT for nausea - IVF - Pain control: dPCA. Pain well controlled at this time - DVT PPX: daily Lovenox, SCDs, OOB Age-related osteoporosis wit hout current pathological fracture 12/10/2021 Overview (12/10/2021): 2020 T-score spine= -1.5, T-score TH= -2.5, T-score FN= -2.9 Arthralgia of hip 09/09/2017 Scoliosis 02/22/2014 Resolved Problems Problem Noted Date Diagnosed Date Resolved Date Nausea & vomiting 12/15/2021 12/23/2021 Assessment & Plan (12/16/2021 8:10 AM CDT): Improving with antiemetics and G tube decompression Paroxysmal atrial fibrillation 12/15/2021 12/23/2021 Assessment & Plan (12/15/2021 10:47 AM CDT): Seen on EKG upon admission to OSH - NSR upon admission here - CTM - replete electrolytes as needed K >4, Mag >2 Immunizations Immunization Administration Dates Next Due Influenza, Quadrivalent, Spl it, Preservative Free, Intramuscular 05/03/2020,05/15/2019,05/13/2017 Influenza, Split 06/29/2013 Influenza, Trivalent, IM (MDV) 07/19/2012 Surgical History Surgery Date Site/Laterality Comments HIP SURGERY SECTION Medical History Medical History Date Comments Kidney stone Allergic rhinitis Migraines Family History Medical History Relation Name Comments Osteoporosis Maternal Grandmother Arthritis Mother Hypertension Mother Osteoporosis Mother Stroke Mother Relation Name Status Comments Maternal Grandmother Alive Mother Social History Tobacco Use Types Packs/Day Years Used Date Smoking Tobacco: Never Smokeless Tobacco: Never Tobacco Cessation:Counseling Given: Not Answered Alcohol Use Standard Drinks/Week Comments Never 0 (1 standard drink = 0.6 oz pur e alcohol) AUDIT-C Answer Date Recorded Q1: How often do you have a drink containing alc ohol? Never 12/15/2021 Average Number of Drinks Not on file 022 Q3: How often do you have si x or more drinks on one occasion? Never 12/15/2021 Comments No Sex and Gender Information Value Date Recorded Sex Assigned at Not on file Legal Sex Female 3:35 AM [employer] Gender Identity Not on file Sexual Orientation Not on file Obstetrics History Last Filed Vital Signs Vital Sign Reading Time Taken Comments Blood Pressure 139/69 06/04/2022 8:43 AM CDT Pulse 70 06/04/2022 8:43 AM CDT Temperature 36.7 C (98.1 F) 06/04/2022 8:43 AM CDT Respiratory Rate 18 06/04/2022 8:43 AM CDT Oxygen Saturation 99% 06/04/2022 8:43 AM CDT Inhaled Oxygen Concentration - - Weight 47.6 kg (105 lb) 01/15/2023 9:47 AM CDT Height 146.1 cm (4' 9.5) 01/15/2023 9:47 AM CDT Body Mass Index 22.33 01/15/2023 9:47 AM CDT Plan of Treatment Health Maintenance Due Date Last Done Comments Breast Cancer Screening-Mammogram 1955 Colon Cancer Screening-Colonoscopy 1955 Depression Screening 1955 Hepatitis C Screening 1955 DTaP/Tdap/Td Vaccine (1 - Tdap) 12/04/1967 Hepatitis B Screening 1974 Pneumococcal vaccine 65+ (1 of 1 - PCV) 2006 Zoster Vaccine (1 of 2) 2006 Well Visit 65+ 2021 Fall Risk Assessment 12/24/2022 12/24/2021 Osteoporosis Screening-Bone Density Scan 12/11/2024 12/11/2022, 07/17/2021 Influenza Vaccine (#1) 2025 0, 05/15/2019, 05/13/2017, Additional history exists Procedures Procedure Name Priority Date/Time Associated Diagnosis Comments DEXA AXIAL AND FOREARM BONE DENSITY SCAN Schedule Routine, Read Routine (OP Routine) 12/11/2022 9:04 AM CDT Other idiopathic scoliosis, thoracolumbar region Age related osteoporosis, unspecified pathological fracture presence from Last 3 Months or Most Recently Relevant to Health Maintenance Results * Dexa Axial and Forearm Bone Density Scan (12/11/2022 9:04 AM CDT) Anatomical Region Laterality Modality Wrist, Body N/A Radiographic Ginna ging Narrative 12/11/2022 9:52 AM CDT Patient Name: Chery Aviles Date of : 1955 Date of scan: 12/11/2022 Bone mineral density was performed on a HoloLibbo[employer] Discovery Densitometer. Based on machine cross-calibration and precision studies the least significant changes of this densitometer is 0.024 g/cm2 at the spine, 0.020 g/cm2 at the total proximal femur, and 0.014g/cm2 at the forearm. HISTORY: This is a 67 y.o. postmenopausal female with a history of osteoporosis and thyroid disease. She reports that she has never smoked. She has never used smokeless tobacco. Currently on treatment with calcium and vitamin D, previously treated with thyroid hormone, and current complaint of back pain and leg pain. INDICATIONS: Menopause status and history of osteoporosis. FINDINGS: BONE MINERAL DENSITY OF THE LUMBAR SPINE Bone Mineral Density (BMD) of the lumbar spine was measured from L1-L4 and the average density was calculated to be 0.850 gm/cm2. This corresponds to a T-score (standard deviations from the mean of young adults) of -1.8. When compared to the previous study of 07/17/2021 there has been a -0.027 gm/cm (-3.1%) decrease in bone density that is considered significant. BONE MINERAL DENSITY OF THE PROXIMAL FEMUR Bone Mineral Density (BMD) of the right hip total was found to be 0.639 gm/cm2. This corresponds to a T-score standard deviations from the mean of young adults of -2.5. Femoral neck is 0.632 gm/cm2 with a T-score (standard deviations from the mean of young adults) of -2.0. When compared to the previous study of 07/17/2021 there has been no significant changes in bone density. BONE MINERAL DENSITY OF THE FOREARM Bone Mineral density (BMD) of the right proximal 1/3 of the radius measures 0.669 gm/cm2. This corresponds to a T-score (standard deviations from the mean of young adults) of -0.4. When compared to the previous study of 07/17/2021 there has been a -0.024 gm/cm (-3.5%) decrease in bone density that is considered significant. A forearm bone density study was performed in addition to the routine study because of severe scoliosis and future spine surgery. SUMMARY: Bone mineral density shows evidence of osteoporosis and marked increase risk of fracture. There has been a significant decrease in bone density since previous measurement. ADDITIONAL COMMENTS: Postmenopausal Women and Men Over 50: Diagnostic criteria: Osteoporosis: BMD at or below -2.5 T-score; Osteopenia (low bone mass): BMD between -1.0 and -2.5 T-score. If the patient has a history of a fragility fracture, a fracture that occurred with trauma equivalent to a fall from a standing position or less, then the diagnosis is osteoporosis regardless of bone density. The history and data sections of the bone mineral density scan were prepared by Alondra Caro (R)(CBDT) who is accredited by the International Society of Clinical Densitometry. The overall patient assessment and scan interpretation were performed by Jos Bonilla M.D. who is certified by the International Society of Clinical Densitometry. [id number] Kendra Bryan MD IM DXA PROCEDURES Final R esult from Last 3 Months or Most Recently Relevant to Health Maintenance Insurance [facility] CHOICE PLUS [employer] [place] [employer] [place] Advance Directives For more information, please contact: [phone] * Full Code (Latest Code Status on File) Date Activated Date Inactivated Comments 12/15/2021 9:08 AM 12/24/2021 5:25 PM * Full Code Date Activated Date Inactivated Comments 08/13/2021 9:08 AM 08/14/2021 4:41 AM Care Teams User Experience Team Lead Relationship Specialty Start Date End Date Dunia Weinberg MD [address] [facility] [address] [place] [address] PCP - General 01/07/18
[2025-05-05 11:38] VITALS: BP 124/62; PULSE 89; RESP 20; TEMP 37.6; O2SAT 96
[2025-05-05 12:24] LABS: EDUAAPPEAR Cloudy; EDUABILI 1+ (Negative); EDUABLOOD 3+ (Negative); EDUACOLOR1 Yellow; EDUAGLUCOSE Negative (Negative); EDUAKETONE Negative (Negative); EDUALEUKO 3+ (Negative); EDUANITRATE Positive (Negative); EDUAPH 8.0; EDUAPROTEIN 1+ (Negative); EDUASPGRAVITY 1.005; EDUAUROBILI 0.2
== END 2025-05-05 12:52 | disposition home or self-care (01) ==
PROVIDERS: Emergency Provider Nurse Practitioner Family; PCP Family Medicine
DX: N30.00 Acute cystitis without hematuria (principal); I10 Essential (primary) hypertension; E05.00 Thyrotoxicosis with diffuse goiter without thyrotoxic crisis or storm; M19.90 Unspecified osteoarthritis, unspecified site; K21.9 Gastro-esophageal reflux disease without esophagitis; H26.9 Unspecified cataract
CPT/HCPCS: 74018; 81003; 87077; 87086; 87186; 99213; G0463

== ENCOUNTER 2025-06-30 11:51 | Emergency (ER) | payer BC, SELFPAY ==
--- NOTE | 2025-06-30 11:52 | ED_ITS ---
HPI - Female Genitourinary General Chief complaint: Urogenital-Female Stated complaint: UTI Time Seen by Provider: 06/30/25 11:51 Source: patient Mode of arrival: ambulatory Limitations: no limitations History of Present Illness HPI Narrative: Chery is a 69 year old female patient presenting to the clinic today with c/o possible UTI. She reports. Was seen for UTI back in April and the culture grew proteus miralbus- resistance to macrobid and tetracycline on the urine culture. States her symptoms improved after taking Cipro. States yesterday she developed left flank pain radiating into left abdomen with some nausea and vomiting. States these are similar symptoms from when she had UTI back in April. History of kidney stones back in the . States his does not feel like kidney stone pain. Pain is pretty constant, aching, rates pain 7/10 currently. Has not taken any medications to treat her symptoms. Related Data Home Medications ?Medication ?Instructions ?Recorded ?Confirmed ?Last Taken ?Type gabapentin 300 mg capsule 600 mg PO QHS 11/19/2106/30 Unknown History teriparatide 20 mcg/dose (750 20 mcg subcut DAILY 03/1704/11/25 Unknown History mcg/3 mL) subcutaneous pen injector Allergies Allergy/AdvReac Type Severity Reaction Status Date / Time No Known Allergies Allergy Unknown Verified 06/30/25 11:52 Review of Systems Review of Systems: Pertinent positives per HPI. Patient denies any fever, chills, rash, headache, visual changes, dizziness, cough, runny nose, sore throat, shortness of breath, chest pain, palpitations, nausea, vomiting, diarrhea, constipation, abdominal pain, or any urinary issues. [facility] Past Medical History Medical History Arthritis of knee Graves disease Carpal tunnel syndrome Arthritis SERGO (stress urinary incontinence, female) Cystocele Uterine prolapse GERD (gastroesophageal reflux disease) HTN (hypertension) Seasonal allergies Rosacea Cataracts, bilateral Surgical History Surgical History H/O joint replacement History of carpal tunnel release left Hx of section x2 H/O total hysterectomy Family History Family History Mother Cerebrovascular accident Hypertension Other Family history of arthritis Social History Social History Social History: Smoking status: Never smoker Second hand tobacco smoke exposure: No Alcohol intake: never Substance use: never Substance use type: does not use Do You Feel Safe in your Home?: Yes Lack of Transportation: No Lack of Food: Never True Current Housing: I Have Housing Concerned About Future Housing: No Difficulty Paying Gas/Electric Bills: No Difficulty Paying for Meds: No Currently Unemployed: YES Education: Don't Know Difficulty w/ Childcare or Family Care: No Living arrangements: with family Occupation/Education: retired Gender identity (if verbalized by the patient): Female Sexual Orientation (if Verbalized by the Patient): Straight or Heterosexual Comments At the time of my signature, I reviewed and agree with the nursing past medical, surgical, social, and family history. There is no relevant family history pertinent to the patient complaint. Exam Narrative: General: Well-developed, well nourished, in no apparent distress. Head: Normocephalic, atraumatic. Cardio: Regular rate and rhythm, s1 and s2 normal, no murmur appreciated. Resp: Clear to auscultation bilaterally, no rhonchi, rales, wheezing or rubs. Abdomen: Soft, pliable, bowel sounds present in all quadrants, left lower quadrant tender to palpation, no organomegly, positive left CVAT tenderness. Course Course Emergency Course: Portions of this record may have been created with voice recognition software. Level of Care: Express Care Visit Vital Signs Vital signs: Vital Signs Temperature 36.9 C 06/30/25 12:00 Pulse Rate 95 06/30/25 12:00 Respiratory Rate 20 06/30/25 12:00 Blood Pressure 119/66 06/30/25 12:00 Pulse Oximetry 97 06/30/25 12:00 Oxygen Delivery Room Air 06/30/25 12:00 Temperature 36.9 C 06/30/25 12:00 Pulse Rate 95 06/30/25 12:00 Respiratory Rate 20 06/30/25 12:00 Blood Pressure 119/66 06/30/25 12:00 Pulse Oximetry 97 06/30/25 12:00 Oxygen Delivery Room Air 06/30/25 12:00 Vital signs reviewed MDM - Female Genitourinary MDM Narrative Medical decision making narrative: At the time of visit patient is resting comfortably on the exam table. Patient appears to be nontoxic. C/o possible UTI. She reports. Was seen for UTI back in April and the culture grew proteus miralbus- resistance to macrobid and tetracycline on the urine culture. States her symptoms improved after taking Cipro. States yesterday she developed left flank pain radiating into left abdomen with some nausea and vomiting. States these are similar symptoms from when she had UTI back in April. History of kidney stones back in the . States his does not feel like kidney stone pain. Pain is pretty constant, aching, rates pain 7/10 currently. Has not taken any medications to treat her symptoms. On exam patient has soft pliable abdomen, nondistended, mild tenderness over the left lower quadrant and over the left CVAT. Labs: Urinalysis shows trace of leukocytes and trace of blood. Some offered KUB x-ray and patient declined. States it does not feel like a kidney stone. Plan: Patient suspect patient has a urinary tract infection. Prescription for ciprofloxacin and Zofran was sent to the pharmacy. Supportive measures were discussed with the patient and they voiced understanding discharge instructions and agrees to treatment plan. Return precautions reviewed Differential Diagnosis Differential diagnosis: Likely urinary tract infection, cystitis and other (Pyelonephritis) Lab Data Labs: Lab Results 06/30/25 Range/Units 12:08 POC Urine Color Yellow POC Urine Clarity Clear POC Urine pH 5.5 POC Ur Specif [place] 1.015 POC Urine Protein Negative (Negative) POC Ur Glucose (UA) Negative (Negative) POC Urine Ketones Negative (Negative) POC Urine Blood Trace (Negative) POC Urine Nitrite Negative (Negative) POC Urine Bilirubin Negative (Negative) POC Urine Urobilinogen 0.2 POC U Leukocyte Esteras Trace (Negative) Discharge Plan Discharge Clinical Impression: Flank pain, left side UTI (urinary tract infection) Qualifiers: Urinary tract infection type: acute cystitis Hematuria presence: with hematuria Qualified Code(s): N30.01 - Acute cystitis with hematuria Patient Disposition: Home Condition: Stable Instructions: Antibiotic Form, Flank Pain (ED), Urinary Tract Infection in Older Adults (ED) Additional Instructions: Take prescription medications only as prescribed-ciprofloxacin Increase fluids and stay well hydrated Wipe front to back. May use wet wipes. Avoid tub baths If sexually active- pee before and after intercourse. Wear cotton panties Avoid tight clothing up against the genitals Follow up with your PCP in 1 week if symptoms persist. Patient Language: Irish Prescriptions: New ciprofloxacin HCl 500 mg tablet 500 mg PO Q12H 7 Days Qty: 14 0RF ondansetron 8 mg tablet,disintegrating 8 mg PO Q8H PRN (Reason: nausea and vomiting) 3 Days Qty: 10 0RF No Action ciprofloxacin HCl [Cipro] 500 mg tablet 500 mg PO Q12H 7 Days Qty: 14 0RF ondansetron 8 mg tablet,disintegrating 8 mg PO Q8H PRN (Reason: nausea and vomiting) 3 Days Qty: 10 0RF gabapentin 300 mg capsule 600 mg PO QHS losartan-hydrochlorothiazide 50-12.5 mg tablet See Rx Instructions .ROUTE .COMPLEX Qty: 90 1RF Dose Instruction: TAKE 1 TABLET BY MOUTH DAILY Rx Instructions: TAKE 1 TABLET BY MOUTH DAILY metoprolol tartrate 37.5 mg tablet 37.5 mg PO BID Qty: 180 1RF meloxicam 7.5 mg tablet 7.5 mg PO DAILY Qty: 90 1RF teriparatide 20 mcg/dose (750 mcg/3 mL) pen injector 20 mcg subcut DAILY Patient Comments: as per bone specialist Follow-up/Referrals: Roque Lynch MD [Primary Care Provider, Family Practice] Time of Disposition: 12:09 Quality NIHSS Nursing Documentation ED NIHSS nursing documentation: reviewed/agree
[2025-06-30 12:00] VITALS: BP 119/66; PULSE 95; RESP 20; TEMP 36.9; O2SAT 97
[2025-06-30 12:10] LABS: EDUAAPPEAR Clear; EDUABILI Negative (Negative); EDUABLOOD Trace (Negative); EDUACOLOR1 Yellow; EDUAGLUCOSE Negative (Negative); EDUAKETONE Negative (Negative); EDUALEUKO Trace (Negative); EDUANITRATE Negative (Negative); EDUAPH 5.5; EDUAPROTEIN Negative (Negative); EDUASPGRAVITY 1.015; EDUAUROBILI 0.2
== END 2025-06-30 12:15 | disposition home or self-care (01) ==
PROVIDERS: Emergency Provider Nurse Practitioner Family; PCP Family Medicine
DX: N30.01 Acute cystitis with hematuria (principal); I10 Essential (primary) hypertension; Z79.899 Other long term (current) drug therapy
CPT/HCPCS: 81003; 87086; 99213; G0463